=== PATIENT | male | born 1975 | race Caucasian/White ===

== ENCOUNTER → 2016-08-28 | Outpatient (CLI) | payer OTHER ==
[~2016-08-28] MED LIST: NS 100 ML IV 100 ML IV ONE
--- NOTE | 2016-08-28 16:47 | CT ---
CTA Chest Indication: History of left lower extremity DVT and acute onset shortness of breath Technique: Helical CT images of the chest were obtained following administration of intravenous cont rast. Reformatted images in the coronal and sagittal planes were also provided for review. Comparison: None Findings: Opacification of the pulmonary arteries is adequate for detection of PTE. No filling defec ts are identified within the pulmonary trunk or main pulmonary artery branches. No segmental filling defects are seen. The heart size is normal without pericardial effusion. The thoracic aorta and med iastinal great vessels are unremarkable. The central airways are patent. There is no intrathoracic l ymphadenopathy. The lungs are clear without focal consolidation, suspicious pulmonary nodule/mass or appreciable eff usion. No pneumothorax is identified. Limited arterial phase images of the upper abdomen demonstrate no acute abnormality. No focal aggres sive osseous lesions are seen. Impression: No evidence of pulmonary thromboembolism or acute cardiopulmonary abnormality. Reported By:
== END ==
LOC: RAD 14:49
PROVIDERS: ATTEND Internal Medicine
DX: R06.02 Shortness of breath (principal); M79.662 Pain in left lower leg
CPT/HCPCS: 71275; A4222